=== PATIENT | female | born 1950 | race Caucasian/White ===

== ENCOUNTER 2019-01-29 18:07 | Emergency (ER) | payer MEDICARE, MEDICAID ==
[2019-01-29] MEDS ORDERED: Sodium Chloride 0.9% 2.5 ML Syringe FLUSH PRN (18:10)
[2019-01-29] MEDS ORDERED: Sodium Chloride 0.9% 10 ML Syringe FLUSH PRN (18:10)
[2019-01-29 18:37] VITALS: BP 165/81
--- NOTE | 2019-01-29 18:42 | EDM.PDOC ---
ED HPI GENERAL MEDICAL PROBLEM - General Chief Complaint: Trauma Stated Complaint: FELL Time Seen by Provider: 01/29/19 18:09 - History of Present Illness INITIAL COMMENTS - FREE TEXT/NARRATIVE: HISTORY AND PHYSICAL: History of present illness: [id number] female presents status post fall in which she struck her face sustaining multiple contusions and abrasions as well as a laceration over right eye she is amnestic of the event and cannot recall anything she is demonstrating some degree of perseveration on arrival here she denies neck pain chest pain abdominal pain or any other concern tendon status is to be determined Review of systems: As per history of present illness and below otherwise all systems reviewed and negative. Past medical history: As per history of present illness and as reviewed below otherwise noncontributory. Surgical history: As per history of present illness and as reviewed below otherwise noncontributory. Social history: No reported history of drug or alcohol abuse. Family history: As per history of present illness and as reviewed below otherwise noncontributory. Physical exam: HEENT: Multiple contusions abrasions noted including small approximately 1 cm moderate depth laceration above her right eye, normocephalic, pupils reactive, negative for conjunctival pallor or scleral icterus, mucous membranes moist, throat clear, neck supple, nontender, trachea midline. Lungs: Clear to auscultation, breath sounds equal bilaterally, chest nontender. Heart: S1S2, regular, negative for clicks, rubs, or JVD. Abdomen: Soft, nondistended, nontender. Negative for masses or hepatosplenomegaly. Negative for costovertebral tenderness. Pelvis: Stable nontender. Genitourinary: Deferred. Rectal: Deferred. Extremities: Atraumatic, negative for cords or calf pain. Neurovascular unremarkable. Neuro: Awake, alert, oriented. Cranial nerves II through XII unremarkable. Cerebellum unremarkable. Motor and sensory unremarkable throughout. Exam nonfocal. Diagnostics: CBC CMP troponin PT/INR chest x-ray EKG CT brain and C-spine Therapeutics: IV O2 monitor all her abrasions were cleaned wound above her right eye was irrigated and closed with Steri-Strips Impression: #1 syncope #2 fall with head/face trauma Definitive disposition and diagnosis as appropriate pending reevaluation and review of above. Face/Facial Pain Score (Numeric/FACES): 5 - Related Data Allergies Allergy/AdvReac Type Severity Reaction Status Date / Time STILTORESPIMAT Allergy Swelling Uncoded 07/17/15 07:47 Home Meds: Home Meds Stiltorespimat Inhaler 07/17/15 [History] Albuterol [Ventolin HFA] 1 puff INH BID 01/29/19 [History] Carvedilol [Coreg] 12.5 mg PO BID 01/29/19 [History] Furosemide [Lasix] 20 mg PO DAILY 01/29/19 [History] Levothyroxine 125 mcg PO ACBREAKFAST 01/29/19 [History] Levothyroxine 200 mcg PO ACBREAKFAST 01/29/19 [History] Lisinopril 5 mg PO DAILY 01/29/19 [History] Rosuvastatin [Crestor] 10 mg PO DAILY 01/29/19 [History] Past Medical History Cardiovascular History: Reports: Heart Failure, Hypertension Respiratory History: Reports: Asthma Other Genitourinary History: MEDULLARY SPONGE KIDNEY DISEASE - Infectious Disease History Infectious Disease History: Reports: Chicken Pox, Measles Social & Family History - Family History Family Medical History: Noncontributory - Tobacco Use Smoking Status *Q: Current Every Day Smoker Years of Tobacco use: 53 Packs/Tins Daily: 1 - Caffeine Use Caffeine Use: Reports: Coffee - Recreational Drug Use Recreational Drug Use: No Review of Systems - Review of Systems Review Of Systems: ROS reveals no pertinent complaints other than HPI. ED EXAM, GENERAL - Physical Exam Exam: See Below (The dictation) Course - Vital Signs Last Recorded V/S: Last Vital Signs Temp 36.7 C 01/29/19 18:18 Pulse 101 H 01/29/19 18:18 Resp 18 01/29/19 18:18 BP 165/81 H 01/29/19 18:18 Pulse Ox 97 01/29/19 18:18 - Orders/Labs/Meds Orders: Active Orders 24 hr Category Date Time Status Admission Status [Patient Status] [ADT] Stat ADT 01/29/19 19:06 Active Cardiac Monitoring [RC] . DIRECTED Care 01/29/19 18:10 Active EKG Documentation Completion [RC] STAT Care 01/29/19 18:11 Active Pulse Oximetry [RC] ASDIRECTED Care 01/29/19 18:10 Active UA RFX MAGGIE AND CULT IF INDIC [URIN] Stat Lab 01/29/19 18:10 Ordered Sodium Chloride 0.9% [Saline Flush] Med 01/29/19 18:10 Active 10 ml FLUSH ASDIRECTED PRN Sodium Chloride 0.9% [Saline Flush] Med 01/29/19 18:10 Active 2.5 ml FLUSH ASDIRECTED PRN Saline Lock Insert [OM.PC] Stat Oth 01/29/19 18:10 Ordered Medication Orders Sodium Chloride (Saline Flush) 10 ml FLUSH ASDIRECTED PRN PRN Reason: Keep Vein Open Sodium Chloride (Saline Flush) 2.5 ml FLUSH ASDIRECTED PRN PRN Reason: Keep Vein Open Labs: Laboratory Tests 01/29/19 01/29/19 01/29/19 Range/Units 18:10 18:10 18:10 WBC 7.40 (4.0-11.0) K/uL RBC 4.11 L (4.30-5.90) M/uL Hgb 12.0 (12.0-16.0) g/dL Hct 38.5 (36.0-46.0) % MCV 93.7 (80.0-98.0) fL MCH 29.2 (27.0-32.0) pg MCHC 31.2 (31.0-37.0) g/dL RDW Std Deviation 45.1 (28.0-62.0) fl RDW Coeff of Sharath 13 (11.0-15.0) % Plt Count 261 (150-400) K/uL MPV 8.80 (7.40-12.00) fL Neut % (Auto) 62.9 (48.0-80.0) % Lymph % (Auto) 22.4 (16.0-40.0) % [place] % (Auto) 10.1 (0.0-15.0) % Eos % (Auto) 4.3 (0.0-7.0) % Baso % (Auto) 0.3 (0.0-1.5) % Neut # (Auto) 4.7 (1.4-5.7) K/uL Lymph # (Auto) 1.7 (0.6-2.4) K/uL [place] # (Auto) 0.8 (0.0-0.8) K/uL Eos # (Auto) 0.3 (0.0-0.7) K/uL Baso # (Auto) 0.0 (0.0-0.1) K/uL Nucleated RBC % 0.0 /100WBC Nucleated RBCs # 0 K/uL INR 0.99 Sodium 141 (136-145) mmol/L Potassium 4.4 (3.5-5.1) mmol/L Chloride 105 (98-107) mmol/L Carbon Dioxide 27.3 (21.0-32.0) mmol/L BUN 33 H (7.0-18.0) mg/dL Creatinine 1.9 H (0.6-1.0) mg/dL Est Cr Clr Drug Dosing 26.53 mL/min Estimated GFR (MDRD) 26.3 ml/min Glucose 103 (74-106) mg/dL Calcium 9.2 (8.5-10.1) mg/dL Total Bilirubin 0.4 (0.2-1.0) mg/dL AST 17 (15-37) IU/L ALT 20 (14-63) IU/L Alkaline Phosphatase 74 (46-116) U/L Troponin I < 0.050 (0.000-0.056) ng/mL Total Protein 7.4 (6.4-8.2) g/dL Albumin 3.2 L (3.4-5.0) g/dL Globulin 4.2 H (2.6-4.0) g/dL Albumin/Globulin Ratio 0.8 L (0.9-1.6) Meds: Medications Generic Name Dose Route Start Last Admin Trade Name Freq PRN Reason Stop Dose Admin Sodium Chloride 10 ml 01/29/19 18:10 Saline Flush FLUSH ASDIRECTED PRN Keep Vein Open Sodium Chloride 2.5 ml 01/29/19 18:10 Saline Flush FLUSH ASDIRECTED PRN Keep Vein Open Departure - Departure Time of Disposition: 19:39 Disposition: DC/Tfer to Acute Hospital 02 Condition: Good Clinical Impression: Cerebral hemorrhage, Syncope - Discharge Information Referrals: PCP,Unknown [Primary Care Provider] - Forms: ED Department Discharge - My Orders Last 24 Hours: My Active Orders 01/29/19 18:10 Cardiac Monitoring [RC] . DIRECTED Pulse Oximetry [RC] ASDIRECTED UA RFX MAGGIE AND CULT IF INDIC [URIN] Stat Sodium Chloride 0.9% [Saline Flush] 10 ml FLUSH ASDIRECTED PRN Sodium Chloride 0.9% [Saline Flush] 2.5 ml FLUSH ASDIRECTED PRN Saline Lock Insert [OM.PC] Stat 01/29/19 18:11 EKG Documentation Completion [RC] STAT - Assessment/Plan Last 24 Hours: My Active Orders 01/29/19 18:10 Cardiac Monitoring [RC] . DIRECTED Pulse Oximetry [RC] ASDIRECTED UA RFX MAGGIE AND CULT IF INDIC [URIN] Stat Sodium Chloride 0.9% [Saline Flush] 10 ml FLUSH ASDIRECTED PRN Sodium Chloride 0.9% [Saline Flush] 2.5 ml FLUSH ASDIRECTED PRN Saline Lock Insert [OM.PC] Stat 01/29/19 18:11 EKG Documentation Completion [RC] STAT
[2019-01-29 18:47] LABS: CHLORIDE,CL 105 mmol/L (98-107); SODIUM,NA 141 mmol/L (136-145)
--- NOTE | 2019-01-29 19:04 | CT ---
Indication : Fall. Patient on blood thinners. Bruising chin and above right eye. TECHNIQUE: CT head without IV contrast. FINDINGS: Marked rotator cuff arthropathy both shoulders. Small amount of lucency along the root of an upper left front anterior tooth on image 1 likely related to dental disease such as inflammatory process or developing abscess. Small amounts of fluid and air bubbles within the paranasal sinuses greatest in the left maxillary sinus likely related to sinusitis. 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 Small amount of high density within the left upper temporal and parietal region is fairly subtle on images 29-33 and also seen on coronal imaging. Findings are suggestive of a very small amount of subarachnoid hemorrhage. Cannot exclude a component parenchymal hemorrhage. No other evidence for acute intracranial hemorrhage. Findings called to referring provider. Mild patchy cerebral and cerebellar atrophy. Patchy mild to moderate small vessel ischemic disease. Moderate acute hematoma in the right cheek and periorbital region extending into the right forehead with associated soft tissue swelling. Remainder negative. IMPRESSION: 1. Small amount of ill-defined high-density within the left superior temporal and inferior parietal region suspicious for a subtle tiny amount of subarachnoid hemorrhage. Cannot exclude a subtle component of parenchymal hemorrhage in this region. Not mentioned above is the fact that I cannot exclude a tiny amount subdural hematoma in the left frontal parietal and temporal region laterally on images 33-40. Short-term follow-up CT could reassess these findings. 2. Chronic intracranial disease as described above. 3. Sinusitis. 4. Moderate acute hematoma in the right cheek and periorbital region extending into the right forehead with associated soft tissue swelling. 5. Small amount of low density around the root of a left anterior upper maxillary tooth consistent with dental disease. Cannot exclude an abscess involving at the root of this tooth. Suggest correlation with dental exam. Please note that all CT scans at this facility use dose modulation, iterative reconstruction, and/or weight-based dosing when appropriate to reduce radiation dose to as low as reasonably achievable. Dictated by Tremaine Guan MD @ Jan 29 2019 6:57PM Signed by Dr. Tremaine Guan @ Jan 29 2019 7:02PM
--- NOTE | 2019-01-29 19:08 | CT ---
INDICATION: Patient on blood thinners. Bruising on chain and above right eye. TECHNIQUE: CT cervical spine without IV contrast including axial, coronal sagittal images. FINDINGS: Moderate degenerative changes in rotator cuff arthropathy in the shoulders. Minimal anterior subluxation of C3 on C4 and of C4 on C5. No acute fracture in cervical spine. Moderate degenerative and hypertrophic changes throughout the cervical and upper thoracic spine with mild to moderate interspace narrowing and hypertrophic changes. Small to moderate amounts of fluid in the paranasal sinuses greatest in the left maxillary sinus with moderate degenerative changes in the left temporomandibular joint sclerosis of the left mandibular head. Moderate diffuse degenerative changes throughout the cervical facet joints. Prominent left mediastinal venous structure which is a normal variant. Moderate atherosclerotic vascular calcifications. Mild emphysema. Ill-defined moderate nodular opacity in the upper lungs likely fibrotic. Fairly advanced degenerative change in the cervical facet joints. Multilevel mild to moderate foraminal narrowing in cervical spine. Partially calcified low-density lesion right thyroid can be correlated thyroid ultrasound. Remainder negative. IMPRESSION: 1. Mild anterior subluxation of C3 on C4 and of C4 on C5 likely chronic. No acute fracture in cervical spine. 2. Moderately prominent degenerative changes cervical spine multilevel interspace narrowing and hypertrophic changes well as advanced cervical facet arthropathy with scattered foraminal narrowing. 3. Partially calcified right thyroid lesion can be correlated thyroid ultrasound. 4. Sinusitis. 5. Mild emphysema and fibrotic nodular opacity in the lung apices. Please note that all CT scans at this facility use dose modulation, iterative reconstruction, and/or weight-based dosing when appropriate to reduce radiation dose to as low as reasonably achievable. Dictated by Tremaine Guan MD @ Jan 29 2019 7:07PM Signed by Dr. Tremaine Guan @ Jan 29 2019 7:07PM
--- NOTE | 2019-01-29 19:11 | CR ---
INDICATION: Fall. TECHNIQUE: AP portable chest x-ray. FINDINGS: Moderate rotator cuff arthropathy in degenerative change both shoulders. Moderate aortic calcification. Advanced degenerative change cervical facet joints. Heart is upper limits normal mildly enlarged. Mild platelike atelectasis or scarring left mid and lower lung. No pulmonary infiltrate. No pneumothorax. There appears to be a subtle fracture involving a right lower lateral rib which is of indeterminate age. This could be correlated to dedicated views of the left ribs if desired. Chest otherwise unremarkable. Dictated by Tremaine Guan MD @ Jan 29 2019 6:51PM Signed by Dr. Tremaine Guan @ Jan 29 2019 7:09PM
== END 2019-01-29 20:35 ==
LOC: MW.ED 18:07
DX: S06.359A Traumatic hemorrhage of left cerebrum with loss of consciousness of unspecified duration, initial encounter (principal); I11.0 Hypertensive heart disease with heart failure; I50.9 Heart failure, unspecified; J45.909 Unspecified asthma, uncomplicated; F17.210 Nicotine dependence, cigarettes, uncomplicated; W18.39XA Other fall on same level, initial encounter; Z88.8 Allergy status to other drugs, medicaments and biological substances; Z79.899 Other long term (current) drug therapy
CPT/HCPCS: 70450; 70450-26; 71045; 71045-26; 72125; 72125-26; 80053; 84484; 85025; 85610; 93005; 99285-25

== ENCOUNTER 2022-02-19 14:39 | Emergency (ER) | payer MEDICARE, MEDICAID ==
[2022-02-19 15:02] VITALS: BP 91/52
[2022-02-19 16:38] VITALS: PULSE 78
== END 2022-02-19 16:38 | disposition home or self-care (01) ==
LOC: MW.ED 14:39
DX: L03.116 Cellulitis of left lower limb (principal); I11.0 Hypertensive heart disease with heart failure; I50.9 Heart failure, unspecified; Z91.048 Other nonmedicinal substance allergy status; Z79.899 Other long term (current) drug therapy
CPT/HCPCS: 93971-26-LT; 93971-LT; 99283; 99283-25

== ENCOUNTER 2022-02-20 05:58 | Inpatient (IN) | payer MEDICARE, MEDICAID ==
[2022-02-20] MEDS ORDERED: Lactated Ringers 1,000 ML IV STA (06:13)
[2022-02-20] MEDS ORDERED: fentaNYL 50 MCG/ML SDV IVPUSH ONE (06:18)
[2022-02-20] MEDS ORDERED: VANCOmycin 1.25 GM/250 ML 1.25 GM in Premix Bag 1 BAG IV ONE (06:30)
[2022-02-20 06:58] LABS: CARBON DIOXIDE,CO2 28.5 mmol/L (21.0-32.0); POTASSIUM,K 5.1 mmol/L (3.5-5.1)
[2022-02-20] MEDS ORDERED: Sodium Chloride 0.9% 1,000 ML IV ONE ×2 (07:16→12:30)
[2022-02-20] MEDS ORDERED: Morphine 2 MG/ML SYRINGE IVPUSH ONE (07:23)
[2022-02-20] MEDS ORDERED: Lactated Ringers 1,000 ML IV SCH ×3 (08:15→10:00)
[2022-02-20] MEDS ORDERED: Sodium Chloride 0.9% 10 ML Syringe FLUSH PRN (08:25)
[2022-02-20] MEDS ORDERED: Sodium Chloride 0.9% 2.5 ML Syringe FLUSH PRN (08:25)
[2022-02-20] MEDS ORDERED: Ondansetron 4 MG/2 ML SDV IVPUSH PRN (08:30)
[2022-02-20] MEDS ORDERED: Albuterol/Ipratropium 3.0-0.5 MG/3 ML Neb Soln NEB PRN (08:30)
[2022-02-20] MEDS ORDERED: cefTRIAXone 1 GM in Sodium Chloride 0.9% 50 ML IV SCH (08:30)
[2022-02-20] MEDS ORDERED: Heparin Sodium 5,000 Units/ML Vial SUBCUT SCH (08:30)
[2022-02-20] MEDS ORDERED: Albuterol 8 GM Inhaler INH PRN (09:00)
[2022-02-20] MEDS ORDERED: Polyethylene Glycol 3350 Powder 17 GM Packet PO PRN (09:00)
[2022-02-20] MEDS ORDERED: Docusate Sodium 100 MG Cap PO PRN (09:00)
[2022-02-20] MEDS ORDERED: Acetaminophen 500 MG Tab PO ONE (09:11)
[2022-02-20] MEDS: Sevelamer Carbonate 800 MG Tab PO SCH ×3 (10:43→17:21)
[2022-02-20] MEDS: Heparin Sodium 5,000 Units/ML Vial SUBCUT SCH ×2 (10:44→17:20)
[2022-02-20] MEDS ORDERED: Lactated Ringers 500 ML IV SCH (11:00)
[2022-02-20] MEDS: Levothyroxine 125 MCG Tab PO SCH (11:48)
[2022-02-20] MEDS ORDERED: Morphine 2 MG/ML SYRINGE IVPUSH PRN (12:00)
[2022-02-20] MEDS: Sodium Chloride 0.9% 1,000 ML IV SCH ×2 (13:40→22:04)
[2022-02-20] MEDS: Meropenem Premix 1 GM in Premix Bag 1 BAG IV SCH (14:00)
[2022-02-20] MEDS: Nicotine 7 MG/24 Hr Patch TRDERM SCH (14:42)
[2022-02-20] MEDS: Acetaminophen 325 MG Tab PO PRN (16:03)
[2022-02-20] MEDS: oxyCODONE 5 MG Tab PO PRN (20:25)
[2022-02-20 21:54] LABS: CARBON DIOXIDE,CO2 25.3 mmol/L (21.0-32.0); POTASSIUM,K 4.2 mmol/L (3.5-5.1)
[2022-02-21] MEDS: Meropenem Premix 1 GM in Premix Bag 1 BAG IV SCH ×3 (00:04→23:54)
[2022-02-21] MEDS: Heparin Sodium 5,000 Units/ML Vial SUBCUT SCH ×4 (02:47→21:55)
[2022-02-21] MEDS: Sodium Chloride 0.9% 1,000 ML IV SCH ×3 (06:07→23:54)
[2022-02-21] MEDS: Levothyroxine 125 MCG Tab PO SCH (06:29)
[2022-02-21 07:08] LABS: CARBON DIOXIDE,CO2 23.6 mmol/L (21.0-32.0); POTASSIUM,K 4.2 mmol/L (3.5-5.1)
[2022-02-21] MEDS: Sevelamer Carbonate 800 MG Tab PO SCH ×3 (09:03→17:06)
[2022-02-21] MEDS: Nicotine 7 MG/24 Hr Patch TRDERM SCH (09:03)
[2022-02-21] MEDS ORDERED: Meropenem Premix 50 ML IV ONE (12:17)
[2022-02-21] MEDS: oxyCODONE 5 MG Tab PO PRN (21:00)
[2022-02-22 06:38] LABS: POTASSIUM,K 4.5 mmol/L (3.5-5.1)
[2022-02-22] MEDS: Levothyroxine 125 MCG Tab PO SCH (06:52)
[2022-02-22] MEDS: Nicotine 7 MG/24 Hr Patch TRDERM SCH (08:29)
[2022-02-22] MEDS: Sevelamer Carbonate 800 MG Tab PO SCH ×3 (08:30→17:11)
[2022-02-22] MEDS: oxyCODONE 5 MG Tab PO PRN (08:50)
[2022-02-22] MEDS: Sodium Chloride 0.9% 1,000 ML IV SCH (10:22)
[2022-02-22] MEDS: Heparin Sodium 5,000 Units/ML Vial SUBCUT SCH ×2 (10:22→22:34)
[2022-02-22] MEDS ORDERED: Furosemide 20 MG/2 ML VIAL IVPUSH ONE (10:37)
[2022-02-22] MEDS: Meropenem Premix 1 GM in Premix Bag 1 BAG IV SCH (12:34)
[2022-02-23] MEDS: Meropenem Premix 1 GM in Premix Bag 1 BAG IV SCH ×2 (00:18→12:23)
[2022-02-23 06:21] LABS: CARBON DIOXIDE,CO2 25.9 mmol/L (21.0-32.0); POTASSIUM,K 4.9 mmol/L (3.5-5.1)
[2022-02-23] MEDS: Levothyroxine 125 MCG Tab PO SCH (06:40)
[2022-02-23] MEDS: Nicotine 7 MG/24 Hr Patch TRDERM SCH (09:39)
[2022-02-23] MEDS: Sevelamer Carbonate 800 MG Tab PO SCH ×3 (09:40→17:14)
[2022-02-23] MEDS: Heparin Sodium 5,000 Units/ML Vial SUBCUT SCH ×2 (10:10→21:31)
[2022-02-23] MEDS: Furosemide 20 MG Tab PO SCH (10:10)
[2022-02-23] MEDS: Acetaminophen 325 MG Tab PO PRN (14:35)
[2022-02-24] MEDS: Meropenem Premix 1 GM in Premix Bag 1 BAG IV SCH ×2 (00:22→12:04)
[2022-02-24] MEDS: Levothyroxine 125 MCG Tab PO SCH (06:30)
[2022-02-24] MEDS: Sevelamer Carbonate 800 MG Tab PO SCH ×3 (07:53→17:19)
[2022-02-24 08:01] LABS: CARBON DIOXIDE,CO2 26.9 mmol/L (21.0-32.0); POTASSIUM,K 5.1 mmol/L (3.5-5.1)
[2022-02-24] MEDS: Nicotine 7 MG/24 Hr Patch TRDERM SCH (08:01)
[2022-02-24] MEDS: Furosemide 20 MG Tab PO SCH (08:01)
[2022-02-24] MEDS: Heparin Sodium 5,000 Units/ML Vial SUBCUT SCH ×2 (09:45→21:09)
[2022-02-24] MEDS: Carvedilol 6.25 MG Tab PO SCH ×2 (11:19→21:08)
[2022-02-24] MEDS: cefTRIAXone 1 GM in Sodium Chloride 0.9% 50 ML IV SCH (21:08)
[2022-02-25 06:10] LABS: CARBON DIOXIDE,CO2 28.5 mmol/L (21.0-32.0); POTASSIUM,K 4.9 mmol/L (3.5-5.1)
[2022-02-25] MEDS: Levothyroxine 125 MCG Tab PO SCH ×2 (06:16→11:57)
[2022-02-25] MEDS: Sevelamer Carbonate 800 MG Tab PO SCH ×3 (09:23→17:44)
[2022-02-25] MEDS: Furosemide 20 MG Tab PO SCH (09:24)
[2022-02-25] MEDS: Carvedilol 6.25 MG Tab PO SCH ×2 (09:25→21:08)
[2022-02-25] MEDS: Heparin Sodium 5,000 Units/ML Vial SUBCUT SCH ×2 (09:26→21:07)
[2022-02-25] MEDS: Nicotine 7 MG/24 Hr Patch TRDERM SCH (09:30)
[2022-02-25] MEDS: cefTRIAXone 1 GM in Sodium Chloride 0.9% 50 ML IV SCH (21:08)
[2022-02-26] MEDS: Levothyroxine 125 MCG Tab PO SCH (06:36)
[2022-02-26 06:39] LABS: CARBON DIOXIDE,CO2 29.4 mmol/L (21.0-32.0); POTASSIUM,K 4.8 mmol/L (3.5-5.1)
[2022-02-26] MEDS: Sevelamer Carbonate 800 MG Tab PO SCH ×2 (08:36→11:40)
[2022-02-26] MEDS: Carvedilol 6.25 MG Tab PO SCH (08:36)
[2022-02-26] MEDS: Nicotine 7 MG/24 Hr Patch TRDERM SCH (08:37)
[2022-02-26] MEDS: Furosemide 20 MG Tab PO SCH (08:38)
[2022-02-26] MEDS: Heparin Sodium 5,000 Units/ML Vial SUBCUT SCH (10:42)
[2022-02-26 11:33] VITALS: BP 106/60; PULSE 91
== END 2022-02-26 12:40 | disposition home health service (06) | DRG 872 ==
LOC: MW.ED 05:58 → MW.MS 07:29 → MW.ICU 13:15 → MW.MS 02-22 15:10
PROVIDERS: ADMIT Student in an Organized Health Care Education/Training Program; ATTEND Student in an Organized Health Care Education/Training Program
PROC: XW033N5 Introduction of Meropenem-vaborbactam Anti-infective into Peripheral Vein, Percutaneous Approach, New Technology Group 5 (ICD-10-PCS; principal; 2022-02-20)
PROC: 3E03329 Introduction of Other Anti-infective into Peripheral Vein, Percutaneous Approach (ICD-10-PCS; 2022-02-20)
PROC: 02HV33Z Insertion of Infusion Device into Superior Vena Cava, Percutaneous Approach (ICD-10-PCS; 2022-02-20)
DX: A41.9 Sepsis, unspecified organism (principal); I50.9 Heart failure, unspecified; I11.0 Hypertensive heart disease with heart failure; N17.9 Acute kidney failure, unspecified; Q61.5 Medullary cystic kidney; L03.116 Cellulitis of left lower limb; I50.32 Chronic diastolic (congestive) heart failure; I13.0 Hypertensive heart and chronic kidney disease with heart failure and stage 1 through stage 4 chronic kidney disease, or unspecified chronic kidney disease; N39.0 Urinary tract infection, site not specified; E87.2 Acidosis; Z20.822 Contact with and (suspected) exposure to COVID-19; E03.9 Hypothyroidism, unspecified; I35.0 Nonrheumatic aortic (valve) stenosis; N18.2 Chronic kidney disease, stage 2 (mild); R65.20 Severe sepsis without septic shock; E78.2 Mixed hyperlipidemia; J45.909 Unspecified asthma, uncomplicated; F17.200 Nicotine dependence, unspecified, uncomplicated; Z88.8 Allergy status to other drugs, medicaments and biological substances; Z79.890 Hormone replacement therapy; Z79.899 Other long term (current) drug therapy
CPT/HCPCS: 36415; 36556; 51702; 71045; 71045-26; 73700-26-LT; 73700-LT; 80048; 80053; 80202; 81001; 82570; 83605; 83735; 84100; 84300; 85025; 85610; 87040; 87086; 96361; 96365; 96366; 96375; 97110-GP; 97112-GP; 97116-GP; 97163-GP; 97530-GP; 99284-25; A9270-GY; J0696; J1644; J1940; J2185; J2270; J3010; J3370; J7030; J7050; J7120; U0002

== ENCOUNTER 2023-10-23 11:57 | Emergency (ER) | payer MEDICARE, MEDICAID ==
[2023-10-23] MEDS: Furosemide 40 MG/4 ML VIAL IVPUSH ONE (12:50)
[2023-10-23 12:53] LABS: BASOPHILS ABSOLUTE AUTO 0.04 K/uL (0.00-0.20); BASOPHILS PERCENT AUTO 0.9 % (0.0-1.0); EOSINOPHILS ABSOLUTE AUTO 0.57 K/uL (0.00-0.45); EOSINOPHILS PERCENT AUTO 12.4 % (0.0-6.0); HEMATOCRIT 42.6 % (37.0-47.0); HEMOGLOBIN 13.7 g/dL (12.0-16.0); IMMATURE GRAN ABSOLUTE AUTO 0.01 K/uL (0.00-0.05); IMMATURE GRAN PERCENT AUTO 0.2 % (0.0-0.4); LYMPHOCYTES ABSOLUTE AUTO 1.18 K/uL (1.00-4.80); LYMPHOCYTES PERCENT AUTO 25.6 % (24.0-44.0); MEAN CORPUSCULAR HEMOGLOBIN 32.4 pg (28.0-32.0); MEAN CORPUSCULAR HGB CONC 32.2 g/dL (32.0-36.0); MEAN CORPUSCULAR VOLUME 100.7 fL (83.0-99.0); MEAN PLATELET VOLUME 8.9 fL (9.4-12.3); MONOCYTES ABSOLUTE AUTO 0.48 K/uL (0.00-0.80); MONOCYTES PERCENT AUTO 10.4 % (0.0-8.0); NEUTROPHILS ABSOLUTE AUTO 2.33 K/uL (1.80-7.70); NEUTROPHILS PERCENT AUTO 50.5 % (41.0-71.0); PLATELET COUNT,PLT 185 K/uL (150-400); RED BLOOD CELL COUNT 4.23 M/uL (4.10-5.30); WHITE BLOOD CELL COUNT,WBC 4.61 K/uL (3.9-11.3)
[2023-10-23 13:08] LABS: INR 0.96 (0.86-1.11)
[2023-10-23 13:26] LABS: A/G RATIO 0.8 (0.9-1.6); ALBUMIN 3.2 g/dL (3.4-5.0); BILIRUBIN TOTAL 0.3 mg/dL (0.2-1.0); CARBON DIOXIDE,CO2 31.1 mmol/L (21.0-32.0); CREATININE 2.5 mg/dL (0.6-1.0); EST CRCL DRUG DOSING (CG) 15.85 mL/min; POTASSIUM,K 4.1 mmol/L (3.5-5.1); PROTEIN TOTAL,TP 7.4 g/dL (6.4-8.2)
[2023-10-23 13:29] LABS: CORONAVIRUS COVID-19 NAA NEGATIVE (NEGATIVE); INFLUENZA A NAA NEGATIVE (NEGATIVE); INFLUENZA B NAA NEGATIVE (NEGATIVE); RESPIRATORY SYNCYTIAL VIR NAA NEGATIVE (NEGATIVE)
[2023-10-23] MEDS: Albuterol/Ipratropium 3.0-0.5 MG/3 ML Neb Soln NEB ONE ×2 (14:42→18:24)
[2023-10-23] MEDS: Albuterol 0.083% 2.5 MG/3 ML Neb Soln NEB ONE (14:42)
[2023-10-23] MEDS: methylPREDNISolone Sodium Succinate 125 MG/2 ML SDV IVPUSH ONE (14:42)
[2023-10-23] MEDS: Acetaminophen 500 MG Tab PO ONE (18:24)
[2023-10-23 18:56] VITALS: BP 119/64; PULSE 94
== END 2023-10-23 19:25 ==
LOC: MW.ED 11:57
DX: R09.02 Hypoxemia (principal); R06.02 Shortness of breath; I11.0 Hypertensive heart disease with heart failure; I50.9 Heart failure, unspecified; E03.9 Hypothyroidism, unspecified; E66.9 Obesity, unspecified; Z68.43 Body mass index [BMI] 50.0-59.9, adult; Z91.048 Other nonmedicinal substance allergy status; Z79.899 Other long term (current) drug therapy
CPT/HCPCS: 0241U; 36415; 71045; 80053; 83880; 84484; 85025; 85379; 85610; 93005; 93970; 96374; 96375; 99285; A9270; J1940; J2930; 93010; J7620-GY

== ENCOUNTER 2023-12-13 04:32 | Inpatient (IN) | payer MEDICARE, MEDICAID ==
[2023-12-13 04:42] LABS: BASOPHILS ABSOLUTE AUTO 0.06 K/uL (0.00-0.20); BASOPHILS PERCENT AUTO 0.9 % (0.0-1.0); EOSINOPHILS ABSOLUTE AUTO 0.98 K/uL (0.00-0.45); EOSINOPHILS PERCENT AUTO 14.3 % (0.0-6.0); HEMATOCRIT 32.8 % (37.0-47.0); HEMOGLOBIN 10.9 g/dL (12.0-16.0); IMMATURE GRAN ABSOLUTE AUTO 0.02 K/uL (0.00-0.05); IMMATURE GRAN PERCENT AUTO 0.3 % (0.0-0.4); LYMPHOCYTES ABSOLUTE AUTO 1.96 K/uL (1.00-4.80); LYMPHOCYTES PERCENT AUTO 28.7 % (24.0-44.0); MEAN CORPUSCULAR HEMOGLOBIN 33.2 pg (28.0-32.0); MEAN CORPUSCULAR HGB CONC 33.2 g/dL (32.0-36.0); MEAN PLATELET VOLUME 9.2 fL (9.4-12.3); MONOCYTES ABSOLUTE AUTO 0.81 K/uL (0.00-0.80); MONOCYTES PERCENT AUTO 11.8 % (0.0-8.0); NEUTROPHILS ABSOLUTE AUTO 3.01 K/uL (1.80-7.70); PLATELET COUNT,PLT 222 K/uL (150-400); RED BLOOD CELL COUNT 3.28 M/uL (4.10-5.30); WHITE BLOOD CELL COUNT,WBC 6.84 K/uL (3.9-11.3)
[2023-12-13] MEDS: Sodium Chloride 0.9% 10 ML Syringe FLUSH PRN (04:42)
[2023-12-13] MEDS: Magnesium Sulfate/Water 2 GM in Premix Bag 1 BAG IV ONE (04:42)
[2023-12-13] MEDS: Albuterol/Ipratropium 3.0-0.5 MG/3 ML Neb Soln NEB ONE (04:42)
[2023-12-13] MEDS: Sodium Chloride 0.9% 2.5 ML Syringe FLUSH PRN (04:42)
[2023-12-13] MEDS: Albuterol 0.083% 2.5 MG/3 ML Neb Soln NEB ONE (04:42)
[2023-12-13 04:43] LABS: BASE EXCESS VENOUS 5.1 (-2.0-3.0); PH,VENOUS 7.34 (7.31-7.41)
[2023-12-13 05:08] LABS: A/G RATIO 0.7 (0.9-1.6); ALANINE AMINOTRANSFERASE,ALT 24 IU/L (14-63); ALBUMIN 3.1 g/dL (3.4-5.0); ALKALINE PHOSPHATASE 70 U/L (46-116); ASPARTATE AMNIOTRANSFERASE,AST 26 IU/L (15-37); BILIRUBIN TOTAL 0.2 mg/dL (0.2-1.0); BLOOD UREA NITROGEN,BUN 55 mg/dL (7.0-18.0); CALCIUM 9.2 mg/dL (8.5-10.1); CARBON DIOXIDE,CO2 32.9 mmol/L (21.0-32.0); CHLORIDE,CL 96 mmol/L (98-107); CREATININE 2.3 mg/dL (0.6-1.0); GLUCOSE RANDOM 105 mg/dL (74-106); POTASSIUM,K 3.3 mmol/L (3.5-5.1); PROTEIN TOTAL,TP 7.3 g/dL (6.4-8.2); SODIUM,NA 122 mmol/L (136-145)
[2023-12-13 05:09] LABS: ESTIMATED GFR 22 mL/min (>60)
[2023-12-13] MEDS: Sodium Chloride 0.9% 500 ML IV SCH (05:22)
[2023-12-13 05:36] LABS: CORONAVIRUS COVID-19 NAA NEGATIVE (NEGATIVE); INFLUENZA A NAA NEGATIVE (NEGATIVE); INFLUENZA B NAA NEGATIVE (NEGATIVE); RESPIRATORY SYNCYTIAL VIR NAA NEGATIVE (NEGATIVE)
[2023-12-13 06:03] LABS: BASE EXCESS ARTERIAL 4.2 (-2.0-3.0); BICARBONATE,ARTERIAL 31 mEq/L (22-26); PCO2 ARTERIAL 58 mmHG (35-45)
[2023-12-13 06:06] LABS: PO2 ARTERIAL < 30 mmHG (80-105)
[2023-12-13] MEDS: cefTRIAXone 1 GM in Sodium Chloride 0.9% 50 ML IV ONE (06:22)
[2023-12-13] MEDS: Albuterol/Ipratropium 3.0-0.5 MG/3 ML Neb Soln NEB SCH (09:57)
[2023-12-13 10:37] LABS: A/G RATIO 0.8 (0.9-1.6); ALBUMIN 3.1 g/dL (3.4-5.0); BILIRUBIN TOTAL 0.2 mg/dL (0.2-1.0); CALCIUM 8.6 mg/dL (8.5-10.1); CARBON DIOXIDE,CO2 26.7 mmol/L (21.0-32.0); CREATININE 2.3 mg/dL (0.6-1.0); EST CRCL DRUG DOSING (CG) 18.81 mL/min; POTASSIUM,K 3.9 mmol/L (3.5-5.1); PROTEIN TOTAL,TP 7.1 g/dL (6.4-8.2)
[2023-12-13 13:49] VITALS: BP 123/57; PULSE 90
== END 2023-12-13 13:43 | DRG 189 ==
LOC: MW.ED 04:32 → MW.ICU 06:13
PROVIDERS: ADMIT Internal Medicine; ATTEND Internal Medicine
PROC: 5A09357 Assistance with Respiratory Ventilation, Less than 24 Consecutive Hours, Continuous Positive Airway Pressure (ICD-10-PCS; principal; 2023-12-13)
PROC: 4A033R1 Measurement of Arterial Saturation, Peripheral, Percutaneous Approach (ICD-10-PCS; 2023-12-13)
DX: J96.21 Acute and chronic respiratory failure with hypoxia (principal); J44.1 Chronic obstructive pulmonary disease with (acute) exacerbation; J44.0 Chronic obstructive pulmonary disease with (acute) lower respiratory infection; E87.1 Hypo-osmolality and hyponatremia; I50.9 Heart failure, unspecified; Z66 Do not resuscitate; I11.0 Hypertensive heart disease with heart failure; G47.30 Sleep apnea, unspecified; Z88.8 Allergy status to other drugs, medicaments and biological substances; E03.9 Hypothyroidism, unspecified; E66.9 Obesity, unspecified; J20.9 Acute bronchitis, unspecified; I35.0 Nonrheumatic aortic (valve) stenosis; Z79.82 Long term (current) use of aspirin; Z79.51 Long term (current) use of inhaled steroids; Z79.899 Other long term (current) drug therapy; Z68.33 Body mass index [BMI] 33.0-33.9, adult
CPT/HCPCS: 0241U; 36415; 36600; 71045; 80053; 82803; 83880; 84484; 85025; 93005; 94640; 93010; 99291; J0696; J3475; J3490; J7040; J7620-GY